=== PATIENT | female | born 1970 | race Caucasian/White ===

== ENCOUNTER 2020-04-15 15:26 | Emergency (ER) | payer BC ==
[~2020-04-15] VITALS: Ht 157.5 cm; Wt 90.9 kg
[2020-04-15 20:46] VITALS: BP 138/78; PULSE 78; TEMP 98.9
== END 2020-04-15 21:00 | disposition home or self-care (01) ==
LOC: COL.ER 15:26
DX: S90.01XA Contusion of right ankle, initial encounter (principal); V49.40XA Driver injured in collision with unspecified motor vehicles in traffic accident, initial encounter; W22.11XA Striking against or struck by driver side automobile airbag, initial encounter; Y92.9 Unspecified place or not applicable

== ENCOUNTER → 2020-09-07 | Outpatient (CLI) | payer BC | LOC: COL.RAD 12:00 | DX: Z13.6 Encounter for screening for cardiovascular disorders (principal); M79.89 Other specified soft tissue disorders; Z87.828 Personal history of other (healed) physical injury and trauma ==